=== PATIENT | male | born 2000 | race Two or more races ===

== ENCOUNTER 2023-02-04 23:45 | Emergency (ER) | payer BC, OTHER ==
[~2023-02-04] VITALS: Ht 182.9 cm; Wt 79.9 kg
[2023-02-05 00:04] VITALS: BP 139/75; PULSE 59; RESP 18; TEMP 98.1; O2SAT 99
[2023-02-05] MEDS ORDERED: CIPRSUS OT (03:00)
== END 2023-02-05 03:04 | disposition home or self-care (01) ==
LOC: ER 23:45
DX: S05.01XA Injury of conjunctiva and corneal abrasion without foreign body, right eye, initial encounter (principal); W45.8XXA Other foreign body or object entering through skin, initial encounter; Y93.89 Activity, other specified; Y92.89 Other specified places as the place of occurrence of the external cause; Y99.8 Other external cause status
CPT/HCPCS: 99283; J7030